=== PATIENT | female | born 1990 | race African-American/Black ===

== ENCOUNTER 2017-02-10 13:32 | Emergency (ER) | payer OTHER ==
[~2017-02-10] VITALS: Ht 175.3 cm; Wt 65.8 kg
[2017-02-10 13:45] VITALS: BP 129/82
[2017-02-10] MEDS ORDERED: AMOX1TAB61 PO (14:14)
--- NOTE | 2017-02-10 14:15 | PHYS DOC ---
Past Medical History Past Medical History: No Pertinent History Past Surgical History: Tonsillectomy Alcohol Use: Occasionally Drug Use: None Adult General Chief Complaint Chief Complaint: Congestion HPI HPI Patient is a 26 year old female presents to the emergency department stating that she's been having some sinus pressure and drainage. She states that she is having a sore throat. She also states that she has been having some diarrhea. She states she's had 4 diarrhea stools the last 24 hours. Patient states that she really hasn't been eating a whole lot. Patient denies any blood in the diarrhea stools. She denies any form stools being in the diarrhea. She states this all liquidy. Patient states that she has taken NyQuil for the upper respiratory congestion she has not taken anything for the diarrhea. Review of Systems Review of Systems Constitutional: Denies fever or chills [] Eyes: Denies change in visual acuity, redness, or eye pain [] HENT: nasal congestion and sore throat [] Respiratory: cough denies shortness of breath [] Cardiovascular: No additional information not addressed in HPI [] GI: Denies abdominal pain, nausea, vomiting, complaining of diarrhea. : Denies dysuria or hematuria [] Musculoskeletal: Denies back pain or joint pain [] Integument: Denies rash or skin lesions [] Neurologic: Denies headache, focal weakness or sensory changes [] Endocrine: Denies polyuria or polydipsia [] Allergies Allergies Allergies Coded Allergies Type Severity Reaction Last Updated Verified No Known Drug Allergies 06/26/15 No Physical Exam Physical Exam Constitutional: Well developed, well nourished, no acute distress, non-toxic appearance. [] HENT: Normocephalic, atraumatic, bilateral external ears normal, oropharynx moist, no oral exudates, nose normal. Bilateral tympanic membrane appears to be normal. Patient with postnasal drip noted that is yellow to clear and drainage. Throat appears to be without erythematous however there is redness. No exudate noted. Anterior cervical adenopathy is negative. Eyes: PERRLA, EOMI, conjunctiva normal, no discharge. [] Neck: Normal range of motion, no tenderness, supple, no stridor. [] Cardiovascular:Heart rate regular rhythm, no murmur [] Lungs & Thorax: Bilateral breath sounds clear to auscultation [] Skin: Warm, dry, no erythema, no rash. [] Back: No tenderness Extremities: No tenderness, no cyanosis, no clubbing, ROM intact, no edema. [] Neurologic: Alert and oriented X 3, normal motor function, normal sensory function, no focal deficits noted. [] Psychologic: Affect normal, judgement normal, mood normal. [] Current Patient Data Vital Signs Vital Signs Date Time Temp Pulse Resp B/P (MAP) Pulse Ox O2 Delivery O2 Flow Rate FiO2 02/10/17 13:45 99.8 119 20 98 Room Air 99.8 EKG EKG [] Radiology/Procedures Radiology/Procedures [] Course & Med Decision Making Course & Med Decision Making Pertinent Labs and Imaging studies reviewed. (See chart for details) Patient denies any abdominal pain or discomfort. She does state that she has diarrhea however she was recommended to use Imodium [id number]. She does have a sinusitis infection will be placed on Augmentin. Recommended following up with her primary care physician in the next 5-7 days. Signs symptoms to return back to emergency department as been provided. Patient will be discharged home in stable condition signs and symptoms to return back to emergency department as been provided. Recommended clear liquid diet for the next 24 hours. IS a concerns been answered at patient's bedside. [] Dragon Disclaimer Dragon Disclaimer This electronic medical record was generated, in whole or in part, using a voice recognition dictation system. Departure Departure Impression: Primary Impression: Sinusitis Additional Impression: Diarrhea Disposition: 01 HOME, SELF-CARE Condition: STABLE Referrals: NO PCP (PCP) Patient Instructions: Diet for Diarrhea, Adult, Sinusitis, [id number] Additional Instructions: Activity as tolerated. Medication as prescribed. Sudafed and Mucinex DM as prescribed by conductor and engineer [id number]. Imodium as needed for diarrhea. Take instructed by conductor and engineer. Clear liquid diet for the next 24 hours. Follow-up to primary care physician next 5-7 days. Return back to emergency prior signs symptoms of become worse. Scripts Amoxicillin/Potassium Clav (AUGMENTIN 875-125 TABLET) 1 Each Tablet 1 TAB PO BID, #20 TAB Prov: MIKE ESCOBEDO Ronal CRITICAL CARE NURSE SPECIALIST 02/10/17 Problem Qualifiers Primary Impression: Sinusitis Sinusitis location: unspecified location Chronicity: unspecified Qualified Codes: J32.9 - Chronic sinusitis, unspecified Additional Impression: Diarrhea Diarrhea type: unspecified type Qualified Codes: R19.7 - Diarrhea, unspecified MIKE ESCOBEDO CRITICAL CARE NURSE SPECIALIST Feb 10, 2017 14:15
== END 2017-02-10 14:39 | disposition home or self-care (01) ==
LOC: ER 13:32
DX: J32.9 Chronic sinusitis, unspecified (principal); R19.7 Diarrhea, unspecified; Z90.89 Acquired absence of other organs
CPT/HCPCS: 99283

== ENCOUNTER 2021-01-25 02:43 | Emergency (ER) | payer MEDICAID, OTHER ==
[~2021-01-25 02:43] MED LIST: AMOX1TAB61 PO
== END 2021-01-26 03:05 | disposition left against medical advice (07) ==
LOC: ER 02:43
DX: S41.119A Laceration without foreign body of unspecified upper arm, initial encounter (principal); Z53.21 Procedure and treatment not carried out due to patient leaving prior to being seen by health care provider; X58.XXXA Exposure to other specified factors, initial encounter; Y93.89 Activity, other specified; Y92.89 Other specified places as the place of occurrence of the external cause; Y99.8 Other external cause status